=== PATIENT | male | born 1985 | race Caucasian/White ===

== ENCOUNTER 2019-05-18 09:08 | Emergency (ER) | payer OTHER ==
[~2019-05-18] VITALS: Ht 185.4 cm; Wt 111.1 kg
[~2019-05-18 09:08] MED LIST: Amoxicillin500 MG PO; Flomax0.4 MG PO; GUAIFENESIN1200 MG PO; ONDA4ODT MM; Ultram50 MG PO; Vibramycin100 MG PO
[2019-05-18] MEDS ORDERED: Amoxicillin500 MG PO (09:32)
[2019-05-18] MEDS ORDERED: IBU800 MG PO (09:32)
== END 2019-05-18 09:57 | disposition home or self-care (01) ==
LOC: ER 09:08
DX: K02.9 Dental caries, unspecified (principal); K03.81 Cracked tooth; F17.210 Nicotine dependence, cigarettes, uncomplicated
CPT/HCPCS: 99282

== ENCOUNTER → 2022-03-08 | Outpatient (CLI) | payer OTHER ==
[~2022-03-08] MED LIST changes: +IBU800 MG PO
== END | disposition home or self-care (01) ==
LOC: LAB SHORT 11:36
DX: L57.0 Actinic keratosis (principal)
CPT/HCPCS: 88305

== ENCOUNTER → 2023-09-23 | Outpatient (CLI) | payer OTHER ==
[2023-09-23 16:16] LABS: BASOPHILS ABSOLUTE AUTO 0.05 K/mm3 (0.00-0.23); BASOPHILS PERCENT AUTO 1 % (0-2); EOSINOPHILS ABSOLUTE AUTO 0.25 K/mm3 (0.00-0.68); EOSINOPHILS PERCENT AUTO 3 % (0-6); Hematocrit 48.2 % (37.0-53.0); Hemoglobin 16.5 g/dL (13.5-17.5); IMMATURE GRAN ABSOLUTE AUTO 0.02 K/mm3 (0.00-0.10); IMMATURE GRAN PERCENT AUTO 0 % (0-1); LYMPHOCYTES ABSOLUTE AUTO 1.88 K/mm3 (0.84-5.20); LYMPHOCYTES PERCENT AUTO 23 % (21-46); MONOCYTES ABSOLUTE AUTO 0.56 K/mm3 (0.16-1.47); MONOCYTES PERCENT AUTO 7 % (4-13); Mean Corpuscular HGB 29.7 pg (26.0-34.0); Mean Corpuscular HGB Conc 34.2 g/dL (31.5-36.5); Mean Corpuscular Volume 87 fL (80-100); Mean Platelet Volume 10.4 fL (9.1-12.4); NEUTROPHILS ABSOLUTE AUTO 5.49 K/mm3 (1.96-9.15); NEUTROPHILS PERCENT AUTO 67 % (41-73); Platelet Count 274 K/mm3 (150-400); RDW Coefficient Variation 13.4 % (11.7-14.2); RDW Standard Deviation 42.8 fL (35.1-46.3); Red Blood Cell Count 5.55 M/mm3 (4.30-5.90); White Blood Cell Count 8.25 K/mm3 (4.00-11.30)
[2023-09-23 16:18] LABS: Alanine Aminotransfer (ALT/SGP 35 U/L (12-78); Albumin/Globulin Ratio 1.1 (0.8-1.8); Alk Phos 103 U/L (50-136); Anion Gap 7 mmol/L (3-11); Aspartate Aminotrans (AST/SGOT 20 U/L (12-37); Bilirubin, Total 0.7 mg/dL (0.1-1.0); Blood Urea Nitrogen 16 mg/dL (8-24); Bun/Creatinine Ratio 19.4 (12.0-20.0); CHOL/HDL RATIO 3.8; CO2, Blood 28 mmol/L (21-32); Calcium, Blood 8.9 mg/dL (8.5-10.1); Chloride, Blood 108 mmol/L (98-108); Cholesterol 235 mg/dL (50-200); Creatinine, Blood 0.82 mg/dL (0.60-1.20); Globulin, Blood 3.7 g/dL (2.2-4.0); Glomerular Filtration Rate 115 (60-); Glucose, Blood 105 mg/dL (70-99); HDL Cholesterol 62 mg/dL (>39); LDL/HDL RATIO 2.3; Low Density Lipoprotein Chol 143 mg/dL (0-110); Potassium, Blood 3.7 mmol/L (3.5-5.5); Sodium, Blood 139 mmol/L (136-145); Total Protein, Blood 7.7 g/dL (6.4-8.2); Triglycerides 152 mg/dL (30-140); Very Low Density Lipoprot Chol 30 mg/dL (6-28)
== END ==
LOC: LAB SHORT 15:05 → LAB 15:05
PROVIDERS: Family Medicine
DX: I16.0 Hypertensive urgency (principal); E78.2 Mixed hyperlipidemia
CPT/HCPCS: 80053; 80061; 84443; 85025

== ENCOUNTER → 2023-10-07 | Outpatient (CLI) | payer OTHER ==
[2023-10-07 17:20] LABS: Albumin/Globulin Ratio 1.1 (0.8-1.8); Bilirubin, Total 0.6 mg/dL (0.1-1.0); Bun/Creatinine Ratio 26.4 (12.0-20.0); Calcium, Blood 9.3 mg/dL (8.5-10.1); Creatinine, Blood 1.1 mg/dL (0.60-1.20); Globulin, Blood 3.8 g/dL (2.2-4.0); Potassium, Blood 3.7 mmol/L (3.5-5.5); Total Protein, Blood 7.8 g/dL (6.4-8.2)
== END | disposition home or self-care (01) ==
LOC: LAB 15:12 → LAB SHORT 15:12
PROVIDERS: Family Medicine
DX: I10 Essential (primary) hypertension (principal)
CPT/HCPCS: 80053

== ENCOUNTER 2023-10-25 04:34 | Observation (INO) | payer OTHER ==
[2023-10-25] VITALS (25 sets, daily range): BP systolic 108–148; BP diastolic 66–119
[~2023-10-25] VITALS: Ht 185.4 cm; Wt 112.7 kg
[2023-10-25] MEDS ORDERED: LOSARTAN-HCTZ1 EACH PO (04:48)
[2023-10-25 04:55] LABS: Source, Urine Clean Catch
[2023-10-25 04:58] LABS: Bilirubin, Urine Neg (Neg); Blood, Urine 5+ (Neg); Glucose Qualitative, Urine Neg (Neg); Ketones, Urine 1+ (Neg); Leukocyte Esterase, Urine Neg (Neg); Nitrite, Urine Neg (Neg); Protein, Urine 4+ (Neg); Urobilinogen, Urine NORM (Normal)
[2023-10-25 05:03] LABS: Appearance, Urine Turbid (Clear); Color, Urine Red (P-Yellow)
[2023-10-25] MEDS ORDERED: Ketorolac Tromethamine 15mg Vial IV ONE (05:15)
[2023-10-25 05:18] LABS: Bacteria Not Seen /hpf; Red Blood Cells, Urine TNTC /hpf (0-2); Squamous Epithelial Cells Not Seen /hpf (Few)
[2023-10-25 05:24] LABS: BASOPHILS ABSOLUTE AUTO 0.09 K/mm3 (0.00-0.23); BASOPHILS PERCENT AUTO 1 % (0-2); EOSINOPHILS ABSOLUTE AUTO 0.12 K/mm3 (0.00-0.68); EOSINOPHILS PERCENT AUTO 1 % (0-6); Hematocrit 44.4 % (37.0-53.0); Hemoglobin 15.7 g/dL (13.5-17.5); IMMATURE GRAN ABSOLUTE AUTO 0.04 K/mm3 (0.00-0.10); IMMATURE GRAN PERCENT AUTO 0 % (0-1); LYMPHOCYTES ABSOLUTE AUTO 1.59 K/mm3 (0.84-5.20); LYMPHOCYTES PERCENT AUTO 14 % (21-46); MONOCYTES ABSOLUTE AUTO 0.88 K/mm3 (0.16-1.47); MONOCYTES PERCENT AUTO 8 % (4-13); Mean Corpuscular HGB 29.7 pg (26.0-34.0); Mean Corpuscular HGB Conc 35.4 g/dL (31.5-36.5); Mean Corpuscular Volume 84 fL (80-100); Mean Platelet Volume 9.8 fL (9.1-12.4); NEUTROPHILS ABSOLUTE AUTO 8.47 K/mm3 (1.96-9.15); NEUTROPHILS PERCENT AUTO 76 % (41-73); Platelet Count 235 K/mm3 (150-400); RDW Coefficient Variation 12.9 % (11.7-14.2); RDW Standard Deviation 39.5 fL (35.1-46.3); Red Blood Cell Count 5.28 M/mm3 (4.30-5.90); White Blood Cell Count 11.19 K/mm3 (4.00-11.30)
[2023-10-25 05:46] LABS: Albumin, Blood 3.9 g/dL (3.4-5.0); Bilirubin, Total 0.6 mg/dL (0.1-1.0); Bun/Creatinine Ratio 15.1 (12.0-20.0); Calcium, Blood 8.5 mg/dL (8.5-10.1); Creatinine, Blood 1.52 mg/dL (0.60-1.20); Globulin, Blood 3.8 g/dL (2.2-4.0); Potassium, Blood 3.8 mmol/L (3.5-5.5); Total Protein, Blood 7.7 g/dL (6.4-8.2)
[2023-10-25] MEDS ORDERED: Ondansetron HCl 2 MG / ML 2ML Vial IV ONE (06:15)
[2023-10-25] MEDS ORDERED: HYDROmorphone HCl/Pf 1MG SYR IV ONE (06:15)
[2023-10-25] MEDS ORDERED: Lactated Ringer's 1,000 ML IV ONE (06:20)
[2023-10-25] MEDS ORDERED: Diltiazem HCl 5 MG / ML 5ML Vial IV ONE ×2 (06:45→07:05)
[2023-10-25] MEDS ORDERED: dilTIAZem HCL 100 MG in NS 100 ML IV SCH (08:25)
[2023-10-25] MEDS ORDERED: Metoprolol Tartrate 1 MG/ML 5 ML VIAL IV ONE (08:50)
[2023-10-25] MEDS ORDERED: FentaNYL Citrate 50 MCG/ML 2 ML Injection IV PRN ×2 (09:55→10:35)
[2023-10-25] MEDS ORDERED: Acetaminophen 325 MG TABLET PO PRN (09:55)
[2023-10-25] MEDS ORDERED: NS 1,000 ML IV SCH ×2 (09:55→10:30)
[2023-10-25] MEDS ORDERED: OxyCODONE 5 mg/Acetamin 325 mg TABLET PO PRN (09:55)
[2023-10-25] MEDS ORDERED: Metoprolol Tartrate 25 MG Tab PO SCH ×2 (11:00→21:00)
[2023-10-25] MEDS ORDERED: ChlordiazePOXIDE 25 MG Cap PO PRN (11:05)
[2023-10-25] MEDS ORDERED: LORazepam 2 MG/ML 1ML Injection IV PRN (11:10)
[2023-10-25] MEDS ORDERED: Albuterol HFA200 ACT/6.7 GM INH INH PRN (11:25)
[2023-10-25] MEDS ORDERED: Multivitamins 1 Tab PO SCH (12:00)
[2023-10-25] MEDS ORDERED: Nicotine 14 MG PATCH TOP SCH (12:00)
[2023-10-25] MEDS ORDERED: Thiamine HCl 100 MG Tab PO SCH (12:00)
--- NOTE | 2023-10-25 12:56 | NUR ---
ADMIT PT ARRIVED TO PCU 9 VIA GURNEY, WAS ABLE TO STAND AND TRANSFER SELF TO HOSPITAL BED WITHOUT DIFFICULTY. PT IS ALERT AND ORIENTED, COMPLAINED OF MILD FLANK PAIN, PERCOCET GIVEN. AFTER STANDING UP TO VOID, PT STATES PAIN INCREASED SIGNIFICANTLY, IV FENTANYL GIVEN WITH GOOD RELIEF. IV DILTIAZEM INFUSING. PT REMAINS AFIB WITH RATE IN THE 120S. PT SO AT THE BEDSIDE. BOTH UPDATED ON PLAN OF CARE.
[2023-10-25 16:13] LABS: U Amphetamine Screen Not Detected; U Barbituate Screen Not Detected; U Benzodiazapine Screen Not Detected; U Buprenorphine Screen Not Detected; U Cannabinoids Screen DETECTED; U Cocaine Screen Not Detected; U Methadone Screen Not Detected; U Methamphetamine Screen Not Detected; U Opiates Screen Not Detected; U Oxycodone Screen DETECTED; U Phencyclidine Screen Not Detected
--- NOTE | 2023-10-25 17:23 | NUR ---
SHIFT SUMMARY PT HAS BEEN RESTING IN BED, GETTING UP TO THE BEDSIDE TO USE THE URINAL. URINE HAS BEEN YELLOW, A LITTLE CLOUDY. HE HAS BEEN ALERT AND ORIENTED. LUNGS CLEAR, RA. CONTINUES IN AFIB, RATE IN THE 80S, BUMPS UP ABOVE 100 STILL, BP HYPERTENSIVE. EATING WELL. PT'S SO WAS AT THE BEDSIDE AND HAS BEEN UPDATED.
--- NOTE | 2023-10-25 19:45 | NUR ---
ASSUMED CARE OF PATIENT AT 1900. REPORT RECEIVED FROM ERNST Tucker RN. PT UP IN BED. DILTIAZEM INFUSING AT 10 MG/HR, NS AT 150 mL/HR. MONITOR SHOWS AFIB WITH HR IN 60'S-70'S, SBP 140'S. NO ACUTE NEEDS IDENTIFIED AT THIS TIME. SEE SHIFT ASSESSMENT FOR FULL DETAILS.
[2023-10-25] MEDS ORDERED: Sennosides 8.6 MG Tab PO SCH (21:00)
[2023-10-25] MEDS ORDERED: Docusate Sodium 100 MG Cap PO SCH (21:00)
[2023-10-26] VITALS (21 sets, daily range): BP systolic 92–173; BP diastolic 60–127
[2023-10-26 04:08] LABS: Hematocrit 41.8 % (37.0-53.0); Hemoglobin 14.2 g/dL (13.5-17.5); Mean Corpuscular HGB 29.5 pg (26.0-34.0); Mean Corpuscular Volume 87 fL (80-100); Mean Platelet Volume 10.3 fL (9.1-12.4); Platelet Count 211 K/mm3 (150-400); RDW Coefficient Variation 13.2 % (11.7-14.2); RDW Standard Deviation 41.8 fL (35.1-46.3); Red Blood Cell Count 4.81 M/mm3 (4.30-5.90)
[2023-10-26 04:24] LABS: Bun/Creatinine Ratio 18.1 (12.0-20.0); Calcium, Blood 7.9 mg/dL (8.5-10.1); Creatinine, Blood 1.16 mg/dL (0.60-1.20); Potassium, Blood 3.2 mmol/L (3.5-5.5)
--- NOTE | 2023-10-26 05:25 | NUR ---
SHIFT SUMMARY PT REMAINED ALERT AND ORIENTED X 4 T/O ENTIRETY OF SHIFT. ABLE TO FOLLOW COMMANDS, MAKE PURPOSEFUL MOVEMENTS, AND MAKE NEEDS KNOWN. AFEBRILE AND DENIED PAIN. MONITOR SHOWED AFIB WITH HR < 100. DILTIAZEM TITRATED TO SB ORDERED, AND HR REMAINED < 100. BP STABLE. ON ROOM AIR WITH O2 SATURATIONS > 92%. NO BM THIS SHIFT. DENIES N/V. TOLERATES PO INTAKE WELL. SKIN TEAR TO R GREAT TOE FROM PREVIOUS TRIP AND FALL, BANDAGE IN PLACE. PIV TO LAC INFUSING NS AT 150 mL/HR. WILL CONTINUE TO MONITOR AND REPORT TO ONCOMING RN.
[2023-10-26] MEDS ORDERED: Potassium Chloride 20 MEQ TabCR PO ONE (06:30)
[2023-10-26] MEDS ORDERED: Tamsulosin HCl 0.4 MG Cap PO SCH (09:00)
[2023-10-26] MEDS ORDERED: Enoxaparin 40 MG/0.4 ML SYR SC SCH (09:00)
[2023-10-26] MEDS ORDERED: Potassium Chloride 20 MEQ/15 ML UDC PO ONE (09:20)
[2023-10-26] MEDS ORDERED: Metoprolol Succinate 50 MG TABCR PO SCH (10:00)
[2023-10-26] MEDS ORDERED: ALBU90OI INH (10:51)
[2023-10-26] MEDS ORDERED: METO50ER PO (10:51)
[2023-10-26] MEDS ORDERED: MULVITA PO (10:52)
[2023-10-26] MEDS ORDERED: ASPI81CH PO (10:53)
[2023-10-26] MEDS ORDERED: Percocet 5-3251 EACH PO (10:53)
--- NOTE | 2023-10-26 14:35 | NUR ---
DISCHARGE SUMMARY PT A&OX4. VSS, HTN NOTED, MD AWARE. MEDICATIONS ADJUSTED AND REVEIWED W/ PT. NEW MEDICATIONS FAXED TO PHARMACY. PT ABLE TO SHOWER THIS AM. IV'S REMOVED. TELE REMOVED. DISCHARGE PAPERWORK REVIEWED W/ PT AND . SMOKING CESSATION CONVERSATION W/ PT AND PT'S W/ MD. ECHO DONE THIS SHIFT, SEE RESULTS. PT AMBULATED INDEPENDENTLY W/ ALL BELONGINGS AND TO PRIVATE VEHICLE.
== END 2023-10-26 13:37 | disposition home or self-care (01) ==
LOC: ER 04:34 → PCU 04:35
PROVIDERS: Emergency Medicine; ADMIT Internal Medicine
DX: N20.2 Calculus of kidney with calculus of ureter (principal); I48.91 Unspecified atrial fibrillation; N17.9 Acute kidney failure, unspecified; F12.99 Cannabis use, unspecified with unspecified cannabis-induced disorder; F10.90 Alcohol use, unspecified, uncomplicated; I10 Essential (primary) hypertension; E78.6 Lipoprotein deficiency; E87.6 Hypokalemia; F17.210 Nicotine dependence, cigarettes, uncomplicated; Z79.82 Long term (current) use of aspirin; Z79.899 Other long term (current) drug therapy
CPT/HCPCS: 36415; 74176; 80048; 80053; 81001; 84439; 84443; 84481; 85025; 85027; 93005; 93010; 93306; 94762; 96361; 96365; 96366; 96372; 96375; 96376; 99285-25; A9270; G0378; J1170; J1650; J1885; J2405; J3010; J7030; J7120

== ENCOUNTER → 2024-11-28 | Outpatient (CLI) | payer OTHER ==
[~2024-11-28] MED LIST changes: +ALBU90OI INH; +ASPI81CH PO; +LOSARTAN-HCTZ1 EACH PO; +METO50ER PO; +MULVITA PO; +Percocet 5-3251 EACH PO
[2024-11-28 18:49] LABS: BASOPHILS ABSOLUTE AUTO 0.09 K/mm3 (0.00-0.23); BASOPHILS PERCENT AUTO 1 % (0-2); EOSINOPHILS ABSOLUTE AUTO 0.42 K/mm3 (0.00-0.68); EOSINOPHILS PERCENT AUTO 5 % (0-6); Hematocrit 44.8 % (37.0-53.0); Hemoglobin 15.6 g/dL (13.5-17.5); IMMATURE GRAN ABSOLUTE AUTO 0.03 K/mm3 (0.00-0.10); IMMATURE GRAN PERCENT AUTO 0 % (0-1); LYMPHOCYTES ABSOLUTE AUTO 2.89 K/mm3 (0.84-5.20); LYMPHOCYTES PERCENT AUTO 31 % (21-46); MONOCYTES ABSOLUTE AUTO 0.93 K/mm3 (0.16-1.47); MONOCYTES PERCENT AUTO 10 % (4-13); Mean Corpuscular HGB Conc 34.8 g/dL (31.5-36.5); Mean Corpuscular Volume 86 fL (80-100); NEUTROPHILS ABSOLUTE AUTO 4.97 K/mm3 (1.96-9.15); NEUTROPHILS PERCENT AUTO 53 % (41-73); NRBC ABSOLUTE 0.00 K/mm3 (0.00-0.02); NRBC Auto 0.0 /100 WBC (0.0-0.2); Platelet Count 371 K/mm3 (150-400); RDW Coefficient Variation 12.6 % (11.7-14.2); RDW Standard Deviation 39.4 fL (35.1-46.3)
[2024-11-28 19:55] LABS: Alanine Aminotransfer (ALT/SGP 51 U/L (12-78); Albumin, Blood 3.7 g/dL (3.4-5.0); Albumin/Globulin Ratio 0.8 (0.8-1.8); Anion Gap 9 mmol/L (3-11); Aspartate Aminotrans (AST/SGOT 37 U/L (12-37); Bilirubin, Total 0.4 mg/dL (0.1-1.0); Blood Urea Nitrogen 12 mg/dL (8-24); CHOL/HDL RATIO 6.5; CO2, Blood 29 mmol/L (21-32); Calcium, Blood 9.0 mg/dL (8.5-10.1); Chloride, Blood 102 mmol/L (98-108); Cholesterol 220 mg/dL (50-200); Creatinine, Blood 0.71 mg/dL (0.60-1.20); Globulin, Blood 4.4 g/dL (2.2-4.0); Glucose, Blood 93 mg/dL (70-99); HDL Cholesterol 34 mg/dL (>39); LDL/HDL RATIO 4.3; Low Density Lipoprotein Chol 146 mg/dL (0-110); Potassium, Blood 2.9 mmol/L (3.5-5.5); Sodium, Blood 137 mmol/L (136-145); Total Protein, Blood 8.1 g/dL (6.4-8.2); Triglycerides 200 mg/dL (30-160); Very Low Density Lipoprot Chol 40 mg/dL (6-32)
== END ==
LOC: LAB 17:32 → LAB SHORT 17:32
PROVIDERS: Family Medicine
DX: I10 Essential (primary) hypertension (principal); E78.2 Mixed hyperlipidemia; R73.9 Hyperglycemia, unspecified
CPT/HCPCS: 80053; 80061; 83036; 85025

== ENCOUNTER → 2025-01-02 | Outpatient (CLI) | payer OTHER ==
[2025-01-02 21:19] LABS: Alanine Aminotransfer (ALT/SGP 57.0 U/L (12-78); Albumin, Blood 4.0 g/dL (3.4-5.0); Albumin/Globulin Ratio 1.1 (0.8-1.8); Anion Gap 8.0 mmol/L (3-11); Aspartate Aminotrans (AST/SGOT 38.0 U/L (12-37); Bilirubin, Total 1.0 mg/dL (0.1-1.0); Blood Urea Nitrogen 22.0 mg/dL (8-24); CO2, Blood 27.0 mmol/L (21-32); Calcium, Blood 8.4 mg/dL (8.5-10.1); Chloride, Blood 105.0 mmol/L (98-108); Creatinine, Blood 0.76 mg/dL (0.60-1.20); Globulin, Blood 3.7 g/dL (2.2-4.0); Glucose, Blood 95.0 mg/dL (70-99); Potassium, Blood 3.4 mmol/L (3.5-5.5); Sodium, Blood 137.0 mmol/L (136-145); Total Protein, Blood 7.7 g/dL (6.4-8.2)
== END ==
LOC: LAB 15:19 → LAB SHORT 15:19
PROVIDERS: Family Medicine
DX: I10 Essential (primary) hypertension (principal)
CPT/HCPCS: 80053